=== PATIENT | female | born 1995 | race Caucasian/White ===

== ENCOUNTER 2021-04-10 04:13 | Inpatient (IN) ==
[2021-04-10] MEDS ORDERED: MEPERIDINE 50 MG/1 ML VIAL IV PRN (04:20)
[2021-04-10] MEDS ORDERED: ONDANSETRON 4 MG/2 ML VIAL IV PRN (04:20)
[2021-04-10] MEDS ORDERED: LACTATED RINGERS 1,000 ML IV SCH (04:30)
[2021-04-10] MEDS ORDERED: FAMOTIDINE 20 MG/2 ML VIAL IV ONE (04:56)
[2021-04-10] MEDS ORDERED: CITRIC ACID/SODIUM CITRATE 30 ML UDCUP PO ONE (04:56)
[2021-04-10] MEDS ORDERED: ePHEDrine 50 MG/ML VIAL IV PRN (04:56)
[2021-04-10] MEDS ORDERED: PROMETHAZINE 25 MG/1 ML VIAL IM ONE (04:56)
[2021-04-10] MEDS ORDERED: OXYTOCIN/LR 20 UNIT/1,000 ML BAG IV SCH (05:00)
[2021-04-10] MEDS ORDERED: fentaNYL 2 MCG/ROPIV 0.2% EPID 100 ML EPIDURAL SCH (05:00)
[2021-04-10 05:11] LABS: Basophils % 0.2 % (0.0-0.8); Eosinophils # 0.1 10*3/uL (0.0-0.87); Eosinophils % 0.7 % (0.00-10.9); Hematocrit 28.7 VOL% (35.7-47.0); Hemoglobin 8.9 GM/DL (12.0-16.0); Immature Granulocytes Absolute 0.09 #; Lymphocytes # 2.1 10*3/uL (1.4-4.0); Lymphocytes % 24.5 % (21.3-54.2); Mean Corpuscular Volume 85.2 FL (87-102); Mean Platelet Volume 9.5 FL (9.6-12.0); Monocytes % 9.8 % (1.7-12.7); Neutrophils % 63.8 % (38.7-73.9); Platelet Count 331 T/CUMM (130-400); Red Blood Count 3.37 MC/CUMM (3.8-5.5); Red Cell Distribution Width 13.2 % (9.3-17.3); White Blood Count 8.7 T/CUMM (4-12)
[2021-04-10 05:39] LABS: Alanine Aminotransferase 46 U/L (13-56); Albumin 2.7 G/DL (3.4-5.0); Alkaline Phosphatase 135 U/L (45-117); Aspartate Amino Transferase 26 U/L (0-37); Bilirubin,Total < 0.39 MG/DL (0.20-1.00); Blood Urea Nitrogen 8 MG/DL (7-18); Calcium 8.5 MG/DL (8.5-10.1); Carbon Dioxide 23 MMOL/L (21-32); Estimated Glom Filtration Rate 119 ML/MIN; Glucose 91 MG/DL (74-106); Osmolality,Calculated 272.7 MOS/KG (273-304); Potassium 3.8 MMOL/L (3.5-5.1); Sodium 138 MMOL/L (136-145); Total Protein 6.7 G/DL (6.4-8.2)
[2021-04-10] MEDS ORDERED: LACTATED RINGERS 1,000 ML IV ONE (05:41)
[2021-04-10 07:31] LABS: Bilirubin,Urine Negative (Negative); Blood, Urine Negative (Negative); Glucose,Urine (UA) Negative (Negative); Ketones,Urine Negative (Negative); Mucus,Urine Occasional /LPF (Occasional); Nitrite,Urine Negative (Negative); Protein,Urine Negative; RBC,Urine 1 /HPF (0-4); Squamous Epithelial Cell,Urine Occasional /HPF (0-10); Urine Appearance CLEAR (Clear); Urine Color Yellow (Yellow); Urine Specific Gravity 1.024 (1.001-1.035)
[2021-04-10] MEDS: diphenhydrAMINE 50 MG/1 ML VIAL IV PRN ×2 (08:27→15:42)
[2021-04-10] MEDS ORDERED: METHYLERGONOVINE 0.2 MG/1 ML AMP ONE (11:58)
[2021-04-10] MEDS ORDERED: miSOPROStoL 200 MCG TABLET ONE (11:58)
[2021-04-10] MEDS ORDERED: CARBOPROST TROMETHAMINE 250 MCG/ML AMP IM ONE (11:59)
[2021-04-10 12:23] LABS: Cord Venous Blood HCO3 22.9 MMOL/L; Cord Venous Blood PCO2 39.8 MMHG; Cord Venous Blood PO2 24.7
[2021-04-10] MEDS ORDERED: ACETAMINOPHEN 325 MG TABLET PO PRN (15:04)
[2021-04-10] MEDS ORDERED: oxyCODONE/ACETAMINOPHEN 5-325 MG TABLET PO PRN (15:04)
[2021-04-10] MEDS ORDERED: LANOLIN 50% CREAM 0.3 OZ TUBE TOP PRN (15:04)
[2021-04-10] MEDS ORDERED: DIPH/TET/ACEL PERT BOOSTER VACCINE 0.5 ML VIAL IM ONE (15:04)
[2021-04-10] MEDS ORDERED: OXYTOCIN/LR 20 UNIT/1,000 ML BAG IV ONE (15:04)
[2021-04-10] MEDS ORDERED: BISACODYL 10 MG SUPP RECTAL PRN (15:04)
[2021-04-10] MEDS ORDERED: BENZOCAINE 20%/MENTHOL 0.5% SPRAY 56 GM CAN TOP PRN (15:04)
[2021-04-10] MEDS ORDERED: MEASLES/MUMPS/RUBELLA VACCINE 0.5 ML VIAL SUBCUT ONE (15:04)
[2021-04-10] MEDS ORDERED: HYDROCORTISONE 2.5% RECTAL CREAM 30 GM TUBE TOP PRN (15:04)
[2021-04-10] MEDS ORDERED: WITCH HAZEL PADS 100/JAR TOP PRN (15:04)
[2021-04-10] MEDS ORDERED: RHO(D) IMMUNE GLOBULIN 300 MCG SYRINGE IM ONE (15:04)
[2021-04-10] MEDS ORDERED: diphenhydrAMINE 50 MG/1 ML VIAL ONE (15:18)
[2021-04-10] MEDS: IBUPROFEN 800 MG TABLET PO PRN (17:05)
[2021-04-10] MEDS: DOCUSATE SODIUM 100 MG CAPSULE PO SCH (21:35)
[2021-04-10] MEDS: FERROUS SULFATE 325 MG TABLET PO SCH (21:35)
[2021-04-10] MEDS: oxyCODONE/ACETAMINOPHEN 5-325 MG TABLET PO PRN (21:39)
[2021-04-11] MEDS: LEVOTHYROXINE 112 MCG TABLET PO SCH ×2 (05:19→06:41)
[2021-04-11 05:22] LABS: Basophils # 0.1 10*3/uL (0.0-0.2); Basophils % 0.4 % (0.0-0.8); Eosinophils # 0.1 10*3/uL (0.0-0.87); Eosinophils % 1.1 % (0.00-10.9); Hematocrit 25.2 VOL% (35.7-47.0); Hemoglobin 8.1 GM/DL (12.0-16.0); Immature Granulocytes % 0.8 %; Immature Granulocytes Absolute 0.09 #; Lymphocytes # 2.2 10*3/uL (1.4-4.0); Lymphocytes % 18.2 % (21.3-54.2); Mean Corpuscular HGB Conc 32.1 GM/DL (32-36); Mean Corpuscular Volume 83.4 FL (87-102); Mean Platelet Volume 9.7 FL (9.6-12.0); Neutrophils % 70.5 % (38.7-73.9); Platelet Count 258 T/CUMM (130-400); Red Blood Count 3.02 MC/CUMM (3.8-5.5); Red Cell Distribution Width 13.2 % (9.3-17.3)
[2021-04-11] MEDS: FERROUS SULFATE 325 MG TABLET PO SCH ×3 (08:12→21:42)
[2021-04-11] MEDS: DOCUSATE SODIUM 100 MG CAPSULE PO SCH ×2 (08:12→21:42)
[2021-04-11] MEDS: MULTIVITAMIN (PRENATAL) TABLET PO SCH (08:12)
[2021-04-11] MEDS: IBUPROFEN 800 MG TABLET PO PRN ×3 (08:13→21:43)
[2021-04-11] MEDS: oxyCODONE/ACETAMINOPHEN 5-325 MG TABLET PO PRN (18:40)
[2021-04-12] MEDS: IBUPROFEN 800 MG TABLET PO PRN (05:19)
[2021-04-12] MEDS: oxyCODONE/ACETAMINOPHEN 5-325 MG TABLET PO PRN (05:20)
[2021-04-12] MEDS: LEVOTHYROXINE 112 MCG TABLET PO SCH (06:54)
[2021-04-12] MEDS: MULTIVITAMIN (PRENATAL) TABLET PO SCH (09:23)
[2021-04-12] MEDS: FERROUS SULFATE 325 MG TABLET PO SCH (09:23)
[2021-04-12] MEDS: DOCUSATE SODIUM 100 MG CAPSULE PO SCH (09:24)
[2021-04-12 10:30] VITALS: BP 102/58
== END 2021-04-12 11:55 | disposition home or self-care (01) | DRG 560 ==
LOC: N.LDOUT 04:13 → N.LD 04:16 → N.OB 15:24
PROVIDERS: ADMIT Obstetrics & Gynecology; ATTEND Obstetrics & Gynecology